=== PATIENT | female | born 1995 | race Caucasian/White ===

== ENCOUNTER 2020-12-13 20:28 | Emergency (ER) | payer OTHER ==
[~2020-12-13 20:28] MED LIST: BENTYL10 MG PO; IBUPROFEN800 MG PO
[2020-12-13 21:42] LABS: CORONAVIRUS 2019 SARS-COV-2 NEGATIVE (NEGATIVE); INFLUENZA A NAA NEGATIVE (NEGATIVE)
[2020-12-13] MEDS ORDERED: ZPAK PO (21:53)
[2020-12-13] MEDS ORDERED: MEDROL 4MG DOSEP4 MG PO (21:53)
== END 2020-12-13 22:10 | disposition home or self-care (01) ==
LOC: FER 20:28
PROVIDERS: Emergency Medicine
DX: J06.9 Acute upper respiratory infection, unspecified (principal); F17.200 Nicotine dependence, unspecified, uncomplicated; Z20.822 Contact with and (suspected) exposure to COVID-19
CPT/HCPCS: 71045; 87880; U0002

== ENCOUNTER 2022-02-17 00:19 | Emergency (ER) | payer SELFPAY ==
[~2022-02-17 00:19] MED LIST changes: +MEDROL 4MG DOSEP4 MG PO; +ZPAK PO
[2022-02-17 01:36] LABS: BASOPHIL 0.8 % (0-2); EOSINOPHIL 2.8 % (0-5); HGB 14.5 g/dl (12.5-16.0); LYMPHOCYTE 42.7 % (15-48); MCH 30.1 pg (25.0-31.0); MCV 91.5 fL (78.0-100.0); MONOCYTE 16.8 % (0-12); MPV 9.2 fL (6.0-9.5); NEUTROPHIL 36.8 % (41-80); NRBC 0; PLT 283 K/uL (150-400); RBC 4.81 M/uL (4.20-5.40); RDW 12.3 % (11.5-14.0); WBC 7.5 K/uL (4.0-10.5)
[2022-02-17 01:55] LABS: BUN/CREAT RATIO (CALC) 19.1 RATIO; CREATININE 0.68 mg/dL (0.51-0.95); POTASSIUM 3.7 mmol/L (3.5-5.1)
[2022-02-17 02:18] LABS: CORONAVIRUS 2019 SARS-COV-2 NEGATIVE (NEGATIVE); INFLUENZA A NAA POSITIVE (NEGATIVE)
[2022-02-17] MEDS ORDERED: ONDANSETRON ODT4 MG PO (02:40)
[2022-02-17] MEDS ORDERED: PREDNISONE 20MG20 MG PO (02:40)
== END 2022-02-17 03:46 | disposition home or self-care (01) ==
LOC: FER 00:19
PROVIDERS: Internal Medicine
DX: J10.1 Influenza due to other identified influenza virus with other respiratory manifestations (principal); F17.210 Nicotine dependence, cigarettes, uncomplicated; Z20.822 Contact with and (suspected) exposure to COVID-19
CPT/HCPCS: 36415; 71045; 80048; 84145; 85025; J1100; U0002